=== PATIENT | female | born 1975 | race Caucasian/White ===

== ENCOUNTER 2020-08-08 15:21 | Emergency (ER) | payer OTHER ==
[~2020-08-08] VITALS: Ht 162.6 cm; Wt 113.4 kg
[~2020-08-08 15:21] MED LIST: BIRTH CONTROL PO; CHOL20001 PO; METF500T PO
[2020-08-08 15:27] VITALS: BP 118/61
[2020-08-08 16:16] VITALS: BP 118/61
== END 2020-08-08 16:17 | disposition home or self-care (01) ==
LOC: MED 15:21
DX: N39.0 Urinary tract infection, site not specified (principal); I10 Essential (primary) hypertension; Z79.899 Other long term (current) drug therapy
CPT/HCPCS: 81002; 81025; 99283

== ENCOUNTER 2020-08-10 13:31 | Emergency (ER) | payer OTHER ==
[~2020-08-10] VITALS: Ht 162.6 cm; Wt 113.4 kg
[2020-08-10 13:36] VITALS: BP 155/77
[2020-08-10 14:42] LABS: BASOPHILS # (AUTO) 0.1 K/uL (0.00-0.22); BASOPHILS % (AUTO) 0.5 % (0.0-2.0); EOSINOPHILS # (AUTO) 0.2 K/uL (0-0.4); EOSINOPHILS % (AUTO) 2.2 % (0.0-4.0); HEMATOCRIT 34.8 % (36-48); HEMOGLOBIN 11.5 g/dL (12.0-16.0); LYMPHOCYTES # (AUTO) 1.9 K/uL (2.5-16.5); LYMPHOCYTES % (AUTO) 17.2 % (20.5-51.1); MEAN CORPUSCULAR HEMOGLOBIN 26 pg (27-31); MEAN CORPUSCULAR HGB CONC 33 g/dL (33-37); MEAN CORPUSCULAR VOLUME 78.7 fL (80-94); MONOCYTES # (AUTO) 0.9 K/uL (0.8-1.0); MONOCYTES % (AUTO) 8.5 % (1.7-9.3); NEUTROPHILS # (AUTO) 7.9 K/uL (1.8-7.7); NEUTROPHILS % (AUTO) 71.6 % (42.2-75.2); PLATELET COUNT (AUTO) 351 K/uL (140-450); RED BLOOD CELL COUNT(AUTO) 4.42 MIL/uL (4.20-5.40); RED CELL DISTRIBUTION WIDTH 15.9 % (11.6-13.7)
[2020-08-10 15:06] LABS: ANION GAP 12.5 (8-16); CARBON DIOXIDE 29.7 mmol/L (21-32); CREATININE 0.8 mg/dL (0.6-1.3); POTASSIUM 3.2 mmol/L (3.5-5.1)
[2020-08-10 15:50] VITALS: BP 155/77
== END 2020-08-10 15:45 | disposition home or self-care (01) ==
LOC: MED 13:31
DX: R10.30 Lower abdominal pain, unspecified (principal); M25.551 Pain in right hip; I10 Essential (primary) hypertension; Z90.49 Acquired absence of other specified parts of digestive tract; Z79.899 Other long term (current) drug therapy
CPT/HCPCS: 36415; 73502; 80048; 81002; 81025; 85025; 93971; 99285; Q0092

== ENCOUNTER 2020-08-12 06:25 | Emergency (ER) | payer OTHER ==
[~2020-08-12] VITALS: Ht 162.6 cm; Wt 113.4 kg
[2020-08-12 06:32] VITALS: BP 152/85
--- NOTE | 2020-08-12 06:36 | NUR ---
PT TAKEN TO BED 04 VIA WHEELCHAIR.
--- NOTE | 2020-08-12 06:44 | NUR ---
PATIENT PRESENTS TO ED WITH RIGHT ANKLE PAIN X1 DAY. PT STATES SHE CAME IN SEVERAL DAYS AGO FOR RIGHT ANKLE PAIN RECEIVED PAIN MEDS, LAST NIGHT ANKLE PAIN INCREASED PAIN MEDS WERE NOT EFFECTIVE AND NOTHING ELSE HELPED ALLEVIATE PAIN. DENIES N/V/D; SKIN IS PINK/WARM/DRY; AAOX4 WITH EVEN AND STEADY GAIT; LUNGS CLEAR BL; HR EVEN AND REGULAR; PT DENIES ANY FEVER, CP, SOB, OR COUGH AT THIS TIME; PATIENT STATES PAIN OF 10/10 AT THIS TIME; VSS; PATIENT POSITIONED FOR COMFORT; HOB ELEVATED; BEDRAILS UP X1; BED DOWN. ER MD MADE AWARE OF PT STATUS.
--- NOTE | 2020-08-12 06:59 | NUR ---
ERMD AT BEDSIDE
[2020-08-12] MEDS ORDERED: KETOROLAC 30 MG/ML VIAL IVP ONE (07:05)
[2020-08-12] MEDS ORDERED: NACL 0.9% 1,000 ML IV ONE (07:05)
--- NOTE | 2020-08-12 07:08 | NUR ---
REPORT FROM STEFFI RN, TRANSFER OF CARE AT THIS TIME
[2020-08-12 07:23] LABS: BASOPHILS # (AUTO) 0.1 K/uL (0.00-0.22); BASOPHILS % (AUTO) 0.5 % (0.0-2.0); EOSINOPHILS # (AUTO) 0.2 K/uL (0-0.4); EOSINOPHILS % (AUTO) 1.4 % (0.0-4.0); HEMATOCRIT 33.4 % (36-48); HEMOGLOBIN 10.8 g/dL (12.0-16.0); LYMPHOCYTES # (AUTO) 2.2 K/uL (2.5-16.5); LYMPHOCYTES % (AUTO) 15.9 % (20.5-51.1); MEAN CORPUSCULAR HEMOGLOBIN 25 pg (27-31); MEAN CORPUSCULAR HGB CONC 32 g/dL (33-37); MEAN CORPUSCULAR VOLUME 78.1 fL (80-94); MONOCYTES # (AUTO) 1.3 K/uL (0.8-1.0); MONOCYTES % (AUTO) 9.7 % (1.7-9.3); NEUTROPHILS % (AUTO) 72.5 % (42.2-75.2); PLATELET COUNT (AUTO) 349 K/uL (140-450); RED BLOOD CELL COUNT(AUTO) 4.28 MIL/uL (4.20-5.40); RED CELL DISTRIBUTION WIDTH 15.2 % (11.6-13.7); WHITE BLOOD COUNT (AUTO) 13.8 K/uL (4.8-10.8)
--- NOTE | 2020-08-12 07:34 | NUR ---
Dr. Jiménez is evaluating the patient at bedside.
--- NOTE | 2020-08-12 07:37 | NUR ---
museum exhibit technician at bedside.
[2020-08-12 07:40] LABS: ANION GAP 12.1 (8-16); CARBON DIOXIDE 30.3 mmol/L (21-32); CREATININE 0.7 mg/dL (0.6-1.3); POTASSIUM 3.4 mmol/L (3.5-5.1)
[2020-08-12 07:46] LABS: PROTHROMBIN TIME 9.7 secs (10.8-13.4)
[2020-08-12] MEDS ORDERED: MORPHINE SULFATE 4 MG/ML SYR IVP ONE ×2 (07:50→15:50)
[2020-08-12] MEDS ORDERED: LIDOCAINE/EPI 1% 1:100000 20 ML VIAL INJ ONE (08:00)
--- NOTE | 2020-08-12 08:13 | NUR ---
CONSENT SIGNED BY ERMD AND PATIENT
--- NOTE | 2020-08-12 08:27 | NUR ---
Dr. Jiménez at bedside for procedure.
--- NOTE | 2020-08-12 09:10 | NUR ---
CULTURE GIVEN TO LAB FROM PROCEDURE
--- NOTE | 2020-08-12 09:11 | NUR ---
PT ALERT AND AWAKE, BREATHING EVEN AND UNLABORED. NO DISTRESS NOTED. PAIN MANAGED
--- NOTE | 2020-08-12 10:17 | NUR ---
Dr. Jiménez is reevaluating the patient at bedside.
[2020-08-12 11:28] LABS: APPEARANCE,SPUN,BODY FLUID TURBID (CLEAR); APPEARANCE,UNSPUN,BODY FLUID HAZY (CLEAR); SPECIMENTYPE,BODY FLUID SYNOVIAL
[2020-08-12 11:29] LABS: BODY FLUID CRYSTALS None Seen (None Seen); COLOR,BODY FLUID YELLOW (LT YELLOW); POLYNUCLEAR, BODY FLUID 80 %; RBC, BODY FLUID 300 /cu. mm.; TOTAL VOLUME,BODY FLUID 50 mL; WBC, BODY FLUID 1850 /cu. mm.
--- NOTE | 2020-08-12 12:10 | NUR ---
X-Ray at bedside.
[2020-08-12] MEDS ORDERED: LOSA50TA57 PO (12:19)
[2020-08-12] MEDS ORDERED: ONDANSETRON 4 MG/2 ML VIAL IVP ONE (12:40)
--- NOTE | 2020-08-12 12:45 | NUR ---
PT ALERT AND AWAKE, BREATHING EVEN AND UNLABORED. NO DISTRESS NOTED.
--- NOTE | 2020-08-12 13:57 | NUR ---
PT RESTING WITH EYES CLOSED, BREATHING EVEN AND UNLABORED. NO DISTRESS NOTED.
--- NOTE | 2020-08-12 14:54 | NUR ---
ACCEPTED TO [facility] UNDER DR MCMAHON. NUMBER FOR REPORT [phone].
--- NOTE | 2020-08-12 15:00 | NUR ---
PT STATES SHE IS STARTING TO HAVE PAIN AGAIN, ERMD MADE AWARE
--- NOTE | 2020-08-12 15:10 | NUR ---
Patient to be transferred to [place]. Is being transferred due to higher level of care. Receiving facility has accepting physician and available space. ER physician has signed transfer form. Patient or responsible libertarian has agreed to transfer and signed form. Patient belongings inventoried and will be sent with patient. Copy of nursing notes, lab reports, EKG, Physicians Orders and X-rays to be sent with patient. Report called to Hira FRAZIER at receiving facility. [facility] ambulance service has been called for transfer.
--- NOTE | 2020-08-12 15:10 | NUR ---
FARAZ TALKING TO PT REGARDING STATUS AND TRANSFER
--- NOTE | 2020-08-12 16:07 | NUR ---
PT RESTING WITH EYES CLOSED, BREATHING EVEN AND UNLABORED. NO DISTRESS NOTED.
--- NOTE | 2020-08-12 16:15 | NUR ---
[facility] at bedside for transfer to [facility] ED.
--- NOTE | 2020-08-12 16:15 | NUR ---
[facility] TRANSPORT AT BEDSIDE TO TAKE PATIENT
[2020-08-12 16:16] VITALS: BP 116/68
--- NOTE | 2020-08-16 13:49 | NUR ---
SPOKE WITH MILES FROM [facility] FROM [id number]. OBTAINED FAX # [phone] FAXED OVER COPY OF WOUND CULTURE RESULTS AND RECEIVED CONFIRMATION IT WAS SENT.
== END 2020-08-12 16:15 | disposition short-term general hospital (02) ==
LOC: MED 06:25
DX: M25.571 Pain in right ankle and joints of right foot (principal); M25.551 Pain in right hip; M25.451 Effusion, right hip; I10 Essential (primary) hypertension
CPT/HCPCS: 36415; 71045; 73610; 80048; 82945; 83605; 84157; 85025; 85610; 85651; 86140; 87040; 87070; 87205; 89051; 96361; 96374; 96375; 96376; 99284; J1885; J2001; J2270; J2405; J7030; Q0092

== ENCOUNTER 2020-08-27 17:06 | Emergency (ER) | payer OTHER ==
[~2020-08-27] VITALS: Ht 162.6 cm; Wt 113.4 kg
[~2020-08-27 17:06] MED LIST changes: -BIRTH CONTROL PO; -CHOL20001 PO; +LOSA50TA57 PO; -METF500T PO
[2020-08-27 17:21] VITALS: BP 138/77
[2020-08-27 18:20] VITALS: BP 138/77
== END 2020-08-27 18:20 | disposition home or self-care (01) ==
LOC: MED 17:06
DX: S71.001A Unspecified open wound, right hip, initial encounter (principal); S91.001A Unspecified open wound, right ankle, initial encounter; I10 Essential (primary) hypertension; Z79.899 Other long term (current) drug therapy; X58.XXXA Exposure to other specified factors, initial encounter; Y93.89 Activity, other specified; Y92.89 Other specified places as the place of occurrence of the external cause; Y99.8 Other external cause status
CPT/HCPCS: 99281

== ENCOUNTER 2020-09-30 15:36 | Emergency (ER) | payer OTHER ==
[~2020-09-30] VITALS: Ht 162.6 cm; Wt 117.9 kg
[2020-09-30 15:49] VITALS: BP 149/73
[2020-09-30] MEDS ORDERED: NACL 0.9% 500 ML IV SCH (19:40)
[2020-09-30 20:21] LABS: BASOPHILS % (AUTO) 0.4 % (0.0-2.0); EOSINOPHILS # (AUTO) 0.2 K/uL (0-0.4); EOSINOPHILS % (AUTO) 1.4 % (0.0-4.0); HEMATOCRIT 38.2 % (36-48); LYMPHOCYTES # (AUTO) 3.5 K/uL (2.5-16.5); MEAN CORPUSCULAR HEMOGLOBIN 25 pg (27-31); MEAN CORPUSCULAR HGB CONC 32 g/dL (33-37); MEAN CORPUSCULAR VOLUME 77.8 fL (80-94); MONOCYTES # (AUTO) 0.6 K/uL (0.8-1.0); MONOCYTES % (AUTO) 5.1 % (1.7-9.3); NEUTROPHILS # (AUTO) 8.2 K/uL (1.8-7.7); NEUTROPHILS % (AUTO) 65.1 % (42.2-75.2); PLATELET COUNT (AUTO) 549 K/uL (140-450); RED BLOOD CELL COUNT(AUTO) 4.92 MIL/uL (4.20-5.40); RED CELL DISTRIBUTION WIDTH 15.6 % (11.6-13.7); WHITE BLOOD COUNT (AUTO) 12.5 K/uL (4.8-10.8)
[2020-09-30 20:24] LABS: APPEARANCE,URINE HAZY (CLEAR); BILIRUBIN,URINE NEGATIVE (NEGATIVE); BLOOD, URINE NEGATIVE (NEGATIVE); COLOR,URINE YELLOW (YELLOW); LEUKOCYTE ESTERASE ,URINE NEGATIVE (NEGATIVE); NITRITE, URINE NEGATIVE (NEGATIVE); UGLUCOSE NEGATIVE (NEGATIVE)
[2020-09-30 20:43] LABS: ALBUMIN 3.8 g/dL (3.4-5.0); ANION GAP 10.2 (8-16); CARBON DIOXIDE 30.7 mmol/L (21-32); CREATININE 0.8 mg/dL (0.6-1.3); POTASSIUM 3.9 mmol/L (3.5-5.1); TOTAL BILIRUBIN 0.3 mg/dL (0.0-1.0)
--- NOTE | 2020-09-30 21:27 | NUR ---
Ajay nathan in ED - 09/30/20 at 2137 by MEDEB PT BROUGHT FROM XRAY VIA WHEELCHAIR TO [facility]IR [place]
[2020-09-30] MEDS ORDERED: NACL 0.9% 1,000 ML IV ONE (21:30)
[2020-09-30] MEDS ORDERED: KETOROLAC 30 MG/ML VIAL IVP ONE (21:30)
--- NOTE | 2020-09-30 21:38 | NUR ---
PT AMBULATED TO BED F
[2020-09-30 21:51] LABS: PROTHROMBIN TIME 9.7 secs (10.8-13.4)
[2020-09-30] MEDS ORDERED: AZITHROMYCIN 1,000 MG in DEXTROSE 5% 500 ML IV ONE (21:55)
--- NOTE | 2020-09-30 22:15 | NUR ---
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 Pt denies any pain or discomfort at this time. Pt hooked to monitor. medhx: HTN NKA
[2020-09-30] MEDS ORDERED: cefTRIAXone 1,000 MG VIAL ONE (23:34)
[2020-09-30] MEDS ORDERED: KETOROLAC 30 MG/ML VIAL ONE (23:34)
--- NOTE | 2020-10-01 00:15 | NUR ---
VS STABLE. PT IN BED SLEEPING. IVF INFUSING WELL. PT NOT IN DISTRESS. NO S/SX OF DISCOMFORT NOTED. WILL CONTINUE TO MONITOR.
[2020-10-01] MEDS ORDERED: AZITHROMYCIN 500 MG INJ VIAL IV ONE (00:41)
[2020-10-01 02:10] VITALS: BP 136/66
--- NOTE | 2020-10-01 02:10 | NUR ---
Patient discharged with v/s stable. Written and verbal after care instructions given and explained. Patient alert, oriented and verbalized understanding of instructions. Ambulatory with steady gait. All questions addressed prior to discharge. ID band removed. Patient advised to follow up with PMD. Rx of MOTRIN, DOXYCYCLINE, AZITHROMYCIN given. Patient educated on indication of medication including possible reaction and side effects. Opportunity to ask questions provided and answered.
--- NOTE | 2020-10-05 14:48 | NUR ---
late entry -- ns start time 0100 and end time 0200 and 2 ns bag start time is 0000 and end time is 0100
== END 2020-10-01 02:10 | disposition home or self-care (01) ==
LOC: MED 15:36
DX: M25.551 Pain in right hip (principal); A54.9 Gonococcal infection, unspecified; A74.9 Chlamydial infection, unspecified; I10 Essential (primary) hypertension; Z90.49 Acquired absence of other specified parts of digestive tract; Z79.899 Other long term (current) drug therapy; Z98.890 Other specified postprocedural states
CPT/HCPCS: 36415; 71045; 72192; 73610; 80053; 81003; 82553; 83605; 83874; 85025; 85610; 85730; 87040; 87086; 87426; 96361; 96365; 96367; 96375; 99285; J0456; J0696; J1885; J7030

== ENCOUNTER 2022-11-18 20:24 | Emergency (ER) | payer OTHER ==
[~2022-11-18] VITALS: Ht 162.6 cm; Wt 117.9 kg
[2022-11-18 20:29] VITALS: BP 150/77
--- NOTE | 2022-11-18 20:33 | NUR ---
TO LOBBY A/W BED AMBULATORY
--- NOTE | 2022-11-19 00:04 | NUR ---
SEEN AND EXAMINED BY FARAZ
[2022-11-19] MEDS ORDERED: NAPR-54 PO (00:10)
[2022-11-19 00:48] VITALS: BP 150/77
== END 2022-11-19 00:48 | disposition home or self-care (01) ==
LOC: MED 20:24
DX: M75.101 Unspecified rotator cuff tear or rupture of right shoulder, not specified as traumatic (principal); I10 Essential (primary) hypertension; Z79.899 Other long term (current) drug therapy; Z79.1 Long term (current) use of non-steroidal anti-inflammatories (NSAID)
CPT/HCPCS: 73030; 99283; Q0092

== ENCOUNTER 2024-01-05 12:03 | Emergency (ER) | payer OTHER ==
[~2024-01-05] VITALS: Ht 162.6 cm; Wt 113.4 kg
[~2024-01-05 12:03] MED LIST changes: +NAPR-54 PO
[2024-01-05 12:11] VITALS: BP 157/99; PULSE 94; RESP 18; TEMP 97.5; O2SAT 96
[2024-01-05] MEDS ORDERED: AMOX-1230 PO (12:39)
[2024-01-05] MEDS ORDERED: ACET-8905 PO (12:39)
[2024-01-05] MEDS: HYDROcodone/APAP 5/325 MG 1 TAB TAB PO ONE (12:57)
== END 2024-01-05 13:15 | disposition home or self-care (01) ==
LOC: MED 12:03
DX: K08.89 Other specified disorders of teeth and supporting structures (principal); R60.9 Edema, unspecified; I10 Essential (primary) hypertension; Z79.1 Long term (current) use of non-steroidal anti-inflammatories (NSAID)
CPT/HCPCS: 99282

== ENCOUNTER 2024-01-05 19:45 | Emergency (ER) | payer OTHER ==
[~2024-01-05] VITALS: Ht 162.6 cm; Wt 113.4 kg
[~2024-01-05 19:45] MED LIST changes: +ACET-8905 PO; +AMOX-1230 PO; +NAPR-337 PO; -NAPR-54 PO
[2024-01-05 19:53] VITALS: BP 141/76; PULSE 85; RESP 18; TEMP 98; O2SAT 97
[2024-01-05 21:02] VITALS: BP 141/76; PULSE 85; RESP 18; TEMP 98; O2SAT 97
== END 2024-01-05 21:02 | disposition home or self-care (01) ==
LOC: MED 19:45
DX: K04.7 Periapical abscess without sinus (principal); I10 Essential (primary) hypertension; Z79.899 Other long term (current) drug therapy
CPT/HCPCS: 99281

== ENCOUNTER 2024-03-06 10:02 | Inpatient (IN) | payer OTHER ==
[2024-03-06] VITALS: BP 149/88; PULSE 81; RESP 18; TEMP 97.6; O2SAT 99
[~2024-03-06] VITALS: Ht 162.6 cm; Wt 108.9 kg
[2024-03-06 10:11] VITALS: BP 150/87; PULSE 98; RESP 16; TEMP 98.2; O2SAT 100
[2024-03-06] MEDS: KETOROLAC 30 MG/ML VIAL IVP ONE (13:13)
[2024-03-06 13:41] LABS: BASOPHILS # (AUTO) 0.1 K/uL (0.00-0.22); BASOPHILS % (AUTO) 0.8 % (0.0-2.0); EOSINOPHILS # (AUTO) 0.2 K/uL (0-0.4); EOSINOPHILS % (AUTO) 1.4 % (0.0-4.0); HEMOGLOBIN 12.7 g/dL (12.0-16.0); LYMPHOCYTES # (AUTO) 3.7 K/uL (2.5-16.5); MEAN CORPUSCULAR HEMOGLOBIN 24 pg (27-31); MEAN CORPUSCULAR HGB CONC 32 g/dL (33-37); MEAN CORPUSCULAR VOLUME 76.6 fL (80-94); MONOCYTES % (AUTO) 7.5 % (1.7-9.3); NEUTROPHILS # (AUTO) 8.6 K/uL (1.8-7.7); NEUTROPHILS % (AUTO) 63.3 % (42.2-75.2); PLATELET COUNT (AUTO) 462 K/uL (140-450); RED BLOOD CELL COUNT(AUTO) 5.22 MIL/uL (4.20-5.40); RED CELL DISTRIBUTION WIDTH 16.9 % (11.6-13.7); WHITE BLOOD COUNT (AUTO) 13.6 K/uL (4.8-10.8)
[2024-03-06 13:43] LABS: ANION GAP 14.2 (8-16); CALCIUM 9.9 mg/dL (8.5-10.1); CARBON DIOXIDE 26.6 mmol/L (21-32); CREATININE 0.9 mg/dL (0.6-1.3); POTASSIUM 3.8 mmol/L (3.5-5.1)
[2024-03-06 13:50] LABS: ALBUMIN 3.8 g/dL (3.4-5.0); BILIRUBIN,DIRECT 0.1 mg/dL (0.0-0.3); TOTAL BILIRUBIN 0.4 mg/dL (0.0-1.0); TOTAL PROTEIN, SERUM 8.1 g/dL (6.4-8.2)
[2024-03-06 14:21] LABS: BILIRUBIN,URINE NEGATIVE (NEGATIVE); BLOOD, URINE NEGATIVE (NEGATIVE); COLOR,URINE YELLOW (YELLOW); LEUKOCYTE ESTERASE ,URINE NEGATIVE (NEGATIVE); NITRITE, URINE NEGATIVE (NEGATIVE); PH,URINE 6.5 (5.0-9.0); PROTEIN,URINE NEGATIVE (NEGATIVE); UGLUCOSE NEGATIVE (NEGATIVE); UROBILINOGEN,URINE 0.2 EU/dL (0.2 - 1)
[2024-03-06 14:26] LABS: APPEARANCE,URINE SLIGHTLY HAZY (CLEAR)
[2024-03-06 14:38] LABS: LACTIC ACID 1.5 mmol/L (0.4-2.0)
[2024-03-06] MEDS: LIDOCAINE MPF 1% 10 MG/ML VIAL INJ ONE (16:37)
[2024-03-06] MEDS ORDERED: VANCOMYCIN 1,000 MG in DEXTROSE 5% 250 ML IV ONE (17:30)
[2024-03-06] MEDS: NACL 0.9% 2,000 ML IV ONE (17:55)
[2024-03-06] MEDS: PIPERACILLIN/TAZOBACTAM 3.375 GM in DEXTROSE 5% 50 ML IV ONE (18:00)
[2024-03-06] MEDS ORDERED: ACETAMINOPHEN 325 MG TAB PO PRN (18:00)
[2024-03-06] MEDS ORDERED: ONDANSETRON 4 MG/2 ML VIAL IVP PRN (18:00)
[2024-03-06] MEDS ORDERED: MORPHINE SULFATE 2 MG/ML SYR IVP PRN (18:00)
[2024-03-06] MEDS ORDERED: VANCOMYCIN PER PHARMACY MC PRN (18:10)
[2024-03-06] MEDS ORDERED: PIPERACILLIN/TAZOBACTAM 3.375 GM VIAL IV ONE (18:16)
[2024-03-06] MEDS ORDERED: cefTRIAXone 1,000 MG VIAL ONE (20:01)
[2024-03-06] MEDS ORDERED: VANCOMYCIN 1,000 MG VIAL ONE (20:02)
[2024-03-06] MEDS: VANCOMYCIN 1,000 MG in DEXTROSE 5% 250 ML IV SCH (20:20)
[2024-03-06 21:30] VITALS: PULSE 81; O2SAT 18
[2024-03-06] MEDS: NACL 0.9% 1,000 ML IV SCH (21:30)
[2024-03-07 06:19] LABS: BASOPHILS % (AUTO) 0.2 % (0.0-2.0); EOSINOPHILS # (AUTO) 0.2 K/uL (0-0.4); EOSINOPHILS % (AUTO) 2.7 % (0.0-4.0); HEMATOCRIT 36.4 % (36-48); HEMOGLOBIN 11.9 g/dL (12.0-16.0); LYMPHOCYTES # (AUTO) 2.6 K/uL (2.5-16.5); LYMPHOCYTES % (AUTO) 29.4 % (20.5-51.1); MEAN CORPUSCULAR HEMOGLOBIN 25 pg (27-31); MEAN CORPUSCULAR HGB CONC 33 g/dL (33-37); MEAN CORPUSCULAR VOLUME 76.9 fL (80-94); MONOCYTES # (AUTO) 0.7 K/uL (0.8-1.0); MONOCYTES % (AUTO) 7.6 % (1.7-9.3); NEUTROPHILS # (AUTO) 5.4 K/uL (1.8-7.7); NEUTROPHILS % (AUTO) 60.1 % (42.2-75.2); PLATELET COUNT (AUTO) 370 K/uL (140-450); RED BLOOD CELL COUNT(AUTO) 4.73 MIL/uL (4.20-5.40); RED CELL DISTRIBUTION WIDTH 16.3 % (11.6-13.7)
[2024-03-07 06:21] LABS: ANION GAP 8.6 (8-16); CALCIUM 8.4 mg/dL (8.5-10.1); CARBON DIOXIDE 29.4 mmol/L (21-32); CREATININE 0.8 mg/dL (0.6-1.3)
[2024-03-07 08:00] VITALS: BP 127/60; PULSE 100; RESP 18; TEMP 97.2; O2SAT 100
[2024-03-07 13:48] VITALS: BP 125/66; PULSE 98; RESP 18; TEMP 98
[2024-03-07] MEDS ORDERED: MEDS-TO-BEDS MC SCH (21:00)
== END 2024-03-07 14:37 | disposition home or self-care (01) | DRG 861 ==
LOC: MED 10:02 → MMU 17:59 → MTU 20:30
PROVIDERS: ADMIT Hospitalist; ATTEND Hospitalist
PROC: 0S9F3ZZ Drainage of Right Ankle Joint, Percutaneous Approach (ICD-10-PCS; principal; 2024-03-06)
DX: G89.18 Other acute postprocedural pain (principal); E66.01 Morbid (severe) obesity due to excess calories; I10 Essential (primary) hypertension; Z79.899 Other long term (current) drug therapy; Z68.41 Body mass index [BMI] 40.0-44.9, adult
CPT/HCPCS: 20605; 36415; 73610; 80048; 80076; 81003; 82945; 83605; 83735; 84157; 85025; 85651; 86140; 87040; 87070; 87081; 87205; 96365; 96367; 96375; 99285; J0696; J1885; J2001; J2543; J3370; J7060